=== PATIENT | female | born 1970 | race Caucasian/White ===

== ENCOUNTER → 2016-04-20 | Outpatient (CLI) | payer BC ==
[2015-11-25 12:35] VITALS: BP 115/71
[~2016-04-20] MED LIST: IBUP200T77 PO; OMEP40CA5 PO; OXYC-323 PO
--- NOTE | 2016-04-20 12:11 | KCIC ---
PROCEDURE Lumbar spine, five views; thoracic spine, two views; cervical spine, four views. HISTORY Acute back pain. FINDINGS Lumbar spine: Frontal, lateral, bilateral oblique and coned sacral views of the lumbar spine are obtained. There is grade 1 anterolisthesis of L4 on L5, measuring 4 mm. There is grade 1 anterolisthesis of L3 on L4, measuring 2 mm. There is degenerative endplate remodeling and facet arthropathy at all levels. There is no fracture. Thoracic spine: Frontal and lateral views of the thoracic spine are obtained. There is mild S-shaped scoliosis, with dextrocurvature centered at the upper thoracic levels and levo curvature centered at the lower thoracic levels. No segmentation anomaly is seen. There is endplate remodeling at multiple levels. There is no fracture. Cervical spine: Frontal, lateral, swimmer's and odontoid views of the cervical spine are obtained. There is minimal anterolisthesis of C2 on C3, C3 on C4, C4 on C5 and C5 on C6. There is endplate remodeling with left greater than right facet arthropathy at multiple levels. The vertebral bodies are normal in height and the disc spaces are preserved. IMPRESSION 1. Multilevel degenerative change throughout the spine, described in detail above. 2. Mild S-shaped thoracic scoliosis. 3. Mild grade 1 anterolisthesis of L4 on L5 and minimal grade 1 anterolisthesis of L3 on L4. There is also slight anterolisthesis at multiple cervical levels, a component of which may be positional. Electronically signed by: Nicolasa Colin (Apr 20, 2016 12:09:52)
== END | disposition home or self-care (01) ==
LOC: KCIC 11:19
PROVIDERS: ATTEND Family Medicine
DX: M54.41 Lumbago with sciatica, right side (principal); M54.6 Pain in thoracic spine; M54.2 Cervicalgia
CPT/HCPCS: 72040; 72072; 72110

== ENCOUNTER → 2016-10-20 | Outpatient (CLI) | payer BC ==
[2015-11-25 12:35] VITALS: BP 115/71
--- NOTE | 2016-10-20 10:29 | RAD ---
DATE: 10/20/2016 EXAM: MAMMO RADHA SCREENING BILATERAL HISTORY: Routine screening COMPARISON: 10/12/2015 The breast parenchyma shows scattered fibroglandular densities. Breast parenchyma level B. FINDINGS: 2-D and 3-D tomosynthesis imaging was performed in CC and MLO projections. There are scattered fibroglandular densities in both breasts in a heterogeneous pattern. No new or enlarging breast densities are seen. Minimal benign type calcification is present. No suspicious microcalcifications have developed. IMPRESSION: Stable mammograms without evidence of malignancy. BI-RADS CATEGORY: 2 BENIGN FINDING(S) RECOMMENDED FOLLOW-UP: 12M 12 MONTH FOLLOW-UP PQRS compliance statement: Patient information was entered into a reminder system with a target due date for the next mammogram. Mammography is a sensitive method for finding small breast cancers, but it does not detect them all and is not a substitute for careful clinical examination. A negative mammogram does not negate a clinically suspicious finding and should not result in delay in biopsying a clinically suspicious abnormality. "Our facility is accredited by the [employer] Mammography Program."
== END | disposition home or self-care (01) ==
LOC: KCIC MAMMO 09:08
PROVIDERS: ATTEND Family Medicine
DX: Z12.31 Encounter for screening mammogram for malignant neoplasm of breast (principal)
CPT/HCPCS: 77063; G0202; 77067